=== PATIENT | female | born 1990 | race Caucasian/White ===

== ENCOUNTER 2022-01-17 17:51 | Day surgery (SDC) | payer OTHER ==
[2022-01-17 17:57] VITALS: BMI 31.4
[2022-01-17] MEDS ORDERED: hydrALAZINE 20 MG/ML VIAL SLOW IVP PRN (18:58)
[2022-01-17 21:00] LABS: HIV (1/2) Antibody/Antigen Non-Reactive (NonReactive)
[2022-01-17 21:01] LABS: Syphilis Antibody Nonreactive (Nonreactive); Syphilis Antibody Index 0.03 S/CO (<1.00 Non-Reactive)
[2022-01-17 21:41] LABS: Bilirubin Neg (Negative); Blood, Urine 25 (Negative); Clarity Cloudy (Clear); Glucose, Urine (Dipstick) Normal (Negative); Ketone, Urine Negative (Negative); Leukocyte 500 (Negative); Nitrite Positive (Negative); Protein, Urine (Dipstick) 15 mg/dl (Neg-Trace); Urobilinogen Normal mg/dL (Less than 2)
[2022-01-17 21:50] LABS: HIV 1/2 INDEX 0.17 S/CO (<1.00); Hep B Surf Ag Non-Reactive S/CO (NonReactive)
[2022-01-17 22:04] LABS: Bacteria/HPF 4+ HPF (None Seen); Squamous Epithelial 0-3 HPF (0-3); WBC/HPF Greater than 50 HPF (0-3)
[2022-01-17 22:26] LABS: Amphetamine Not Detected (NotDetected); Barbiturates Screen Not Detected (NotDetected); Benzodiazepine Screen Not Detected (NotDetected); Cocaine Metabolite Screen Not Detected (NotDetected); Methadone Not Detected (NotDetected); Methamphetamine Not Detected (NotDetected); Opiate Screen Not Detected (NotDetected); Oxycodone Screen Not Detected (NotDetected); Phencyclidine (PCP) Not Detected (NotDetected); THC/Cannabinoid Screen Detected (NotDetected); Tricyclic Screen Not Detected (NotDetected)
[2022-01-17 22:46] LABS: Hep C IgG Ab Non-Reactive (NonReactive); Hep C Index 0.06 S/CO (0-0.79)
[2022-01-17 23:01] LABS: SARS-CoV-2 NAA Rapid Test Not Detected (NotDetected)
[2022-01-18 19:34] LABS: Chlamydia by PCR DETECTED (NotDetected); GC by PCR Not Detected (NotDetected)
== END 2022-01-18 00:08 | disposition home or self-care (01) ==
LOC: EEVIPCON 17:51 → CSHLD/OP 17:51
PROVIDERS: ATTEND Obstetrics & Gynecology
DX: O99.891 Other specified diseases and conditions complicating pregnancy (principal); R50.9 Fever, unspecified; O21.2 Late vomiting of pregnancy; O26.893 Other specified pregnancy related conditions, third trimester; R10.9 Unspecified abdominal pain; O98.313 Other infections with a predominantly sexual mode of transmission complicating pregnancy, third trimester; A56.02 Chlamydial vulvovaginitis; Z87.891 Personal history of nicotine dependence; Z3A.34 34 weeks gestation of pregnancy
CPT/HCPCS: 36415; 76815; 80306; 81001; 86762; 86780; 86803; 87340; 87389; 87480; 87491; 87510; 87591; 87660; 99285; U0002

== ENCOUNTER 2022-01-19 14:32 | Day surgery (SDC) | payer OTHER ==
[2022-01-19 14:59] VITALS: BMI 31.6
[2022-01-19] MEDS ORDERED: hydrALAZINE 20 MG/ML VIAL SLOW IVP PRN (16:10)
[2022-01-19 16:49] LABS: Fetal Membranes Rupture No Membranes Rupture (No Rupture)
[2022-01-19] MEDS ORDERED: Promethazine HCl 25 MG in Sodium Chloride 0.9% 50 ML IVPB PRN (16:53)
[2022-01-19] MEDS ORDERED: metroNIDAZOLE 500 MG in Premix Bag 1 BAG IVPB SCH (16:56)
[2022-01-19] MEDS ORDERED: Azithromycin 1,000 MG in Sodium Chloride 0.9% 500 ML IVPB SCH (17:00)
[2022-01-19] MEDS ORDERED: metroNIDAZOLE 500 MG TAB PO ONE (17:00)
[2022-01-19] MEDS ORDERED: Promethazine HCl 25 MG/ML VIAL IM PRN (17:01)
[2022-01-19] MEDS ORDERED: Azithromycin 250 MG TAB PO SCH (17:30)
[2022-01-19] MEDS ORDERED: Cephalexin 250 MG CAP PO SCH (21:00)
== END 2022-01-19 18:05 | disposition home or self-care (01) ==
LOC: CSHLD/OP 14:32
PROVIDERS: ATTEND Obstetrics & Gynecology
DX: O99.891 Other specified diseases and conditions complicating pregnancy (principal); N89.8 Other specified noninflammatory disorders of vagina; O98.313 Other infections with a predominantly sexual mode of transmission complicating pregnancy, third trimester; A56.02 Chlamydial vulvovaginitis; Z3A.34 34 weeks gestation of pregnancy; Z88.8 Allergy status to other drugs, medicaments and biological substances; Z91.040 Latex allergy status; Z91.048 Other nonmedicinal substance allergy status
CPT/HCPCS: 84112; 96372; 99285; J2550

== ENCOUNTER 2022-01-30 04:59 | Inpatient (IN) | payer OTHER ==
[2022-01-30] MEDS ORDERED: Ibuprofen 800 MG TAB PO PRN (05:30)
[2022-01-30] MEDS ORDERED: NS w/ Oxytocin 30 units 500 ML IV SCH (05:30)
[2022-01-30] MEDS ORDERED: Ondansetron PF 4 MG/2 ML Vial IVP PRN ×2 (05:30→09:59)
[2022-01-30] MEDS ORDERED: Lidocaine 1% (PF) 30 ML VIAL SC PRN (05:30)
[2022-01-30] MEDS ORDERED: Methylergonovine 0.2 MG/ML VIAL IM PRN ×2 (05:30→09:59)
[2022-01-30] MEDS ORDERED: hydrALAZINE 20 MG/ML VIAL SLOW IVP PRN ×2 (05:30→09:59)
[2022-01-30] MEDS ORDERED: Carboprost 250 MCG/ML AMP IM PRN (05:30)
[2022-01-30] MEDS ORDERED: Misoprostol 200 MCG TAB PR PRN (05:30)
[2022-01-30] MEDS ORDERED: Promethazine HCl 25 MG/ML VIAL IM PRN ×2 (05:30→09:59)
[2022-01-30] MEDS ORDERED: HYDROcodone/Acetaminophen 5/325 mg Tablet PO PRN ×3 (05:30→09:59)
[2022-01-30 05:39] VITALS: BMI 31.4
[2022-01-30] MEDS: Lactated Ringer's 1,000 ML IV SCH ×3 (05:40→19:31)
[2022-01-30] MEDS ORDERED: Penicillin G Potassium 5 MILL.UNITS in Sodium Chloride 0.9% 100 ML IVPB SCH (05:45)
[2022-01-30] MEDS ORDERED: Penicillin G Potassium 5 MILL.UNITS VIAL ONE (05:51)
[2022-01-30 06:08] LABS: Hemoglobin 11.9 g/dL (12.0-15.5); Mean Corpuscular Hemoglobin 29.5 pg (27.0-33.0); Mean Corpuscular Volume 84.2 fl (81.6-98.3); Mean Platelet Volume 11.4 fl (7.4-10.4); Platelet Count 325 10x3/uL (150-450); RBC Distribution Width 14.4 % (11.5-14.5); Red Blood Cell (RBC) Count 4.04 10x6/uL (3.90-5.03); White Blood Cell (WBC) Count 12.8 10x3/uL (3.5-10.5)
[2022-01-30] MEDS: NS w/ Oxytocin 30 units 500 ML IV SCH ×2 (06:27→06:58)
[2022-01-30] MEDS ORDERED: PROPOFOL 20 ML ONE (06:38)
[2022-01-30] MEDS ORDERED: Fentanyl 250 MCG/5 ML VIAL ONE (06:38)
[2022-01-30] MEDS ORDERED: Ondansetron PF 4 MG/2 ML Vial ONE (06:39)
[2022-01-30] MEDS ORDERED: Ketorolac Tromethamine 30 MG/ML VIAL ONE (06:39)
[2022-01-30] MEDS ORDERED: Dexamethasone 4 mg/ml Vial ONE (06:39)
[2022-01-30 07:08] LABS: Hep B Surf Ag Non-Reactive S/CO (NonReactive); Syphilis Antibody Nonreactive (Nonreactive); Syphilis Antibody Index 0.03 S/CO (<1.00 Non-Reactive)
[2022-01-30 07:59] LABS: HBSAg Index 0.17 S/CO (0-0.99)
[2022-01-30 08:25] LABS: SARS-CoV-2 NAA Rapid Test Not Detected (NotDetected)
[2022-01-30] MEDS ORDERED: Misoprostol 200 MCG TAB VAG PRN (09:59)
[2022-01-30] MEDS ORDERED: Milk Of Magnesia 30 ML UDCUP PO PRN (09:59)
[2022-01-30] MEDS ORDERED: Preparation H Ointment 28 GM TUBE PR PRN (09:59)
[2022-01-30] MEDS ORDERED: Bisacodyl 10 MG SUPP PR PRN (09:59)
[2022-01-30] MEDS ORDERED: Penicillin G 2.5 MILL.units 2.5 MILL.UNITS in Premix Bag 1 BAG IVPB SCH (10:00)
[2022-01-30] MEDS ORDERED: Docusate 100 MG CAP PO SCH (11:00)
[2022-01-30] MEDS ORDERED: Ferrous Sulfate 325 MG TAB PO SCH (11:00)
[2022-01-30] MEDS: HYDROcodone/Acetaminophen 5/325 mg Tablet PO PRN ×2 (11:01→20:08)
[2022-01-30] MEDS: Ferrous Sulfate 325 MG TAB PO SCH (18:36)
[2022-01-30] MEDS: Ibuprofen 800 MG TAB PO SCH ×2 (18:38→21:31)
[2022-01-30] MEDS: Docusate 100 MG CAP PO SCH (21:31)
[2022-01-31] MEDS: Lactated Ringer's 1,000 ML IV SCH (04:31)
[2022-01-31] MEDS: Ibuprofen 800 MG TAB PO SCH (05:21)
[2022-01-31 07:38] VITALS: BP 112/58; TEMP 98.1
[2022-01-31] MEDS: Ferrous Sulfate 325 MG TAB PO SCH (08:21)
[2022-01-31] MEDS: Docusate 100 MG CAP PO SCH (08:22)
[2022-01-31] MEDS ORDERED: Boostrix 0.5 ML (Tdap) VIAL IM ONE (09:59)
[2022-01-31] MEDS: HYDROcodone/Acetaminophen 5/325 mg Tablet PO PRN (10:06)
== END 2022-01-31 12:50 | disposition home or self-care (01) | DRG 806 ==
LOC: CSHLD/OP 04:59 → CSHLD 05:26 → CSHPP 09:45
PROVIDERS: ADMIT Obstetrics & Gynecology; ATTEND Obstetrics & Gynecology
PROC: 10E0XZZ Delivery of Products of Conception, External Approach (ICD-10-PCS; principal; 2022-01-30)
DX: O60.14X0 Preterm labor third trimester with preterm delivery third trimester, not applicable or unspecified (principal); O99.354 Diseases of the nervous system complicating childbirth; Z37.0 Single live birth; O76 Abnormality in fetal heart rate and rhythm complicating labor and delivery; Z3A.36 36 weeks gestation of pregnancy; F41.9 Anxiety disorder, unspecified; G40.909 Epilepsy, unspecified, not intractable, without status epilepticus; O99.344 Other mental disorders complicating childbirth; Z91.040 Latex allergy status; Z88.8 Allergy status to other drugs, medicaments and biological substances; Z87.891 Personal history of nicotine dependence; Z87.442 Personal history of urinary calculi
CPT/HCPCS: 85027; 86780; 86850; 86870; 86900; 86901; 86922; 87340; 88307; 99285; J1100; J1885; J2405; J2540; J2590; J2704; J3010; J3490; J7120; U0002